=== PATIENT | male | born 1995 | race Caucasian/White ===

== ENCOUNTER 2018-01-16 10:34 | Day surgery (SDC) | END 2018-01-16 16:35 | disposition home or self-care (01) ==

== ENCOUNTER 2018-04-11 15:11 | Day surgery (SDC) | payer BC ==
[2018-04-10 17:48] VITALS: Ht 167.6 cm; Wt 73.0 kg
[2018-04-11] VITALS (17 sets, daily range): BP systolic 100–128; BP diastolic 54–74; PULSE 56–84; RESP 15–22
[~2018-04-11] VITALS: Ht 167.6 cm; Wt 73.0 kg
[2018-04-11] MEDS ORDERED: LACTATED RINGER'S 1,000 ML IV SCH (16:00)
--- NOTE | 2018-04-11 16:00 | HPN ---
Date/Time of Note Date/Time of Note DATE: 04/11/18 TIME: 16:00 Interval H&P Admission Note Pt. seen H&P reviewed: No system changes ROMINA CHU Apr 11, 2018 16:00
--- NOTE | 2018-04-11 16:02 | PREAC ---
Date/Time of Note Date/Time of Note DATE: 04/11/18 TIME: 16:00 Anesthesia Eval and Record Evaluation Time Pre-Procedure Interview DATE: 04/11/18 TIME: 16:00 Age 22 Sex male NPO: 8 hrs Preoperative diagnosis Rt middle, ring finger and small finger fracture Planned procedure Rt middle, Ring and small finger fracture ORIF Past Medical History Past Medical History: None Surgery & Anesthesia Issues No known issue Meds Anticoagulation: No Beta Renetta within 24 hr: No Reason Beta Renetta not given: Pt. not on B-Renetta No Active Prescriptions or Reported Meds Current Medications Lactated Ringer's 1,000 ml @ 0 mls/hr Q0M IV ; Start 04/11/18 at 16:00 Meds reviewed: Yes Allergies Coded Allergies: No Known Allergies (Verified Allergy, Mild, 01/16/18) Allergies Reviewed: Yes Labs/Studies Labs Reviewed: Reviewed by anesthesiologist test: N/A Pre-procedure Exam Last vitals Vital Signs Date Temp Pulse Resp B/P (MAP) Pulse Ox O2 O2 Flow FiO2 Time Delivery Rate 04/11/18 98.6 71 16 108/55 98 Room Air 15:31 (72) Airway: Adequate mouth opening, Adequate thyromental dist Mallampati: Mallampati II Teeth: Normal Lung: Normal Heart: Normal ASA Physical Status ASA physical status: 2 Emergency: None Planned Anesthetic General/MAC: LMA Planned Pain Management Single shot nerve block, Parenteral pain med, Local by surgeon Pre-operative Attestations Prior to commencing anesthesia and surgery, the patient was re-evaluated, there was verification of: *The patient's identity *The results of appropriate recent lab work and preoperative vital signs *The above evaluation not changing prior to induction *Anesthetic plan, risk benefits, alternative and complications discussed with patient/family; questions answered; patient/family understands, accepts and wishes to proceed. KALIE ONEAL MD Apr 11, 2018 16:02
[2018-04-11] MEDS ORDERED: BUPIVACAINE 0.5% (SDV) 30 ML INJ ONE (16:24)
[2018-04-11] MEDS ORDERED: MIDAZOLAM 1 MG/ML 2 ML INJ ONE (16:33)
[2018-04-11] MEDS ORDERED: LIDOCAINE 2% (SDV) 5 ML INJ ONE (17:38)
[2018-04-11] MEDS ORDERED: ROCURONIUM 50 MG INJ ONE (17:38)
[2018-04-11] MEDS ORDERED: PROPOFOL 20 ML ONE (17:38)
[2018-04-11] MEDS ORDERED: CEFAZOLIN 1 GM INJ ONE (17:38)
[2018-04-11] MEDS ORDERED: ONDANSETRON 4 MG INJ ONE (17:39)
[2018-04-11] MEDS ORDERED: ROPIVACAINE 0.5 % 30 ML VIAL ONE (17:40)
--- NOTE | 2018-04-11 17:48 | OPPN ---
Date/Time of Note Date/Time of Note DATE: 04/11/18 TIME: 17:48 Operative Report Preoperative Diagnosis right middle, ring and small finger metacarpal neck fractures Postoperative Diagnosis right middle, ring and small finger metacarpal neck fractures Operation/Procedure Performed ORIF right middle and ring finger metacarpal neck fractures CRPP small finger metacarpal neck fracture Surgeon see signature line payroll administrative assistant none Anesthesia: general Estimated blood loss: 0 - 10 ml's Transfusion Required none Specimen none Grafts/Implants none Complications none ROMINA CHU Apr 11, 2018 17:48
--- NOTE | 2018-04-11 18:13 | OPR ---
DATE OF OPERATION: 04/11/2018 SURGEON: Balta Jackson MD ANESTHESIA: General plus peripheral nerve block. PREOPERATIVE DIAGNOSES: 1. Right middle finger metacarpal neck fracture, displaced. 2. Right ring finger metacarpal neck fracture, extraarticular, displaced. 3. Right small finger metacarpal neck fracture, extraarticular, displaced. POSTOPERATIVE DIAGNOSES: 1. Right middle finger metacarpal neck fracture, displaced. 2. Right ring finger metacarpal neck fracture, extraarticular, displaced. 3. Right small finger metacarpal neck fracture, extraarticular, displaced. PROCEDURES: 1. Open reduction and internal fixation, right middle finger metacarpal neck fracture, extraarticular, displaced. 2. Open reduction and internal fixation, right ring finger metacarpal neck fracture, extraarticular, displaced. 3. Closed reduction and percutaneous pinning, right small finger metacarpal neck fracture. OPERATIVE FINDINGS: 1. Displaced right middle and ring finger metacarpal neck fractures with healing and inability to close in reduced manner. 2. Right small finger metacarpal neck fracture with the ability to reduce in a closed manner. INDICATION FOR PROCEDURE: A 22-year-old male with injury to the right hand. He was seen in clinic and diagnosed with a displaced middle, ring and small finger metacarpal neck fractures. The fractures were transverse, extraarticular and displaced. The small finger was minimally displaced; however given the displacement of the middle and ring finger, I felt it best to fix all 3 fractures. The patient elected to proceed with surgical intervention, understanding risks and benefits. DESCRIPTION OF PROCEDURE: The patient was seen preoperative area and all further questions were answered. Again, he gave informed consent understanding risks and benefits. He was taken to operative suite and placed in supine position. He was placed under general anesthesia and tourniquet was placed in the right upper extremity. Right upper extremity was prepped with ChloraPrep stick and draped in usual sterile fashion. Ancef 2 grams IV were given and x- ray imaging was brought in and found to be able to reduce the small finger into a more anatomic position without opening the fracture site. Decision was made to proceed with closed reduction, percutaneous pinning. The small finger metacarpal fracture was reduced and A 0.035 K-wire was driven retrograde across the small finger metacarpal neck from the metacarpal head into the metacarpal base. X-ray imaging showed appropriate hardware placement and bony alignment. The pin was cut short and attention was then turned to the middle finger. A longitudinal incision over the middle finger metacarpal neck was utilized with sharp dissection carried down through skin and subcutaneous tissue. The extensor tendon was protected and periosteal incision was made at the metacarpal neck. The fracture site already had callus formation and I used a 15-blade knife as well as a [place] elevator to free up the fracture site. The fracture was reduced into a more anatomic position and 0.035 K-wire was driven retrograde from the metacarpal head into the metacarpal base stabilizing the fracture. An additional 0.045 K-wire was driven retrograde from the metacarpal head into the metacarpal base. X-ray imaging showed appropriate hardware placement and bony alignment. Both pins were cut short and attention was then turned to the ring finger. A longitudinal incision over the ring finger was utilized with sharp dissection carried down through skin and subcutaneous tissue. The extensor tendon to the ring finger was protected and a periosteal incision was made and the fracture site was identified. There was callus formation which was cleared using a 15-blade knife as well as a [place] elevator. The fracture was reduced into a more anatomic position and a 0.035 K-wire was driven retrograde from the metacarpal head into the metacarpal base. A 0.045 K-wire was also driven from the metacarpal head into the metacarpal base. All fractures were quite stable and x-ray imaging showed appropriate hardware placement and bony alignment. The ring finger K-wires were cut short. Wounds were copiously irrigated and skin was closed with 5-0 nylon. Xeroform was placed in the wound followed by sterile gauze, Webril and a short arm metacarpal cuff splint. Tourniquet was deflated after a total of 33 minutes. The patient was awakened from anesthesia. He was taken to postoperative suite in stable condition, tolerated the procedure well without complication. SPECIMENS: None. ESTIMATED BLOOD LOSS: 5 mL. COUNTS: Sponge, instrument, needle counts correct. TOURNIQUET TIME: 33 minutes. CONDITION ON DISCHARGE: Stable. The patient was given a nonrefillable 5-day prescription for pain medication for surgery today. Dictated By: BALTA RHODES/SUNNI Conf#: [id number] DID#: [id number] MTDD
--- NOTE | 2018-04-11 18:17 | PAC ---
Date/Time of Note Date/Time of Note DATE: 04/11/18 TIME: 18:16 Post-Anesthesia Notes Post-Anesthesia Note Last documented vital signs Vital Signs Date Temp Pulse Resp B/P (MAP) Pulse Ox O2 O2 Flow FiO2 Time Delivery Rate 04/11/18 98.6 71 16 108/55 98 Room Air 15:31 (72) Activity: WNL Respiratory function: WNL Cardiovascular function: WNL Mental status: Baseline Pain reasonably controlled: Yes Hydration appropriate: Yes Nausea/Vomiting absent: Yes Comments P:121/65, pulse:78, spo2:100%, T:98,9 KALIE ONEAL MD Apr 11, 2018 18:17
[2018-04-11] MEDS ORDERED: DIPHENHYDRAMINE 50 MG INJ IV PRN (18:30)
[2018-04-11] MEDS ORDERED: METOCLOPRAMIDE 10 MG INJ IV PRN (18:30)
[2018-04-11] MEDS ORDERED: ONDANSETRON 4 MG INJ IV PRN (18:30)
[2018-04-11] MEDS ORDERED: FENTAnyl 50 MCG/ML VIAL IV PRN (18:30)
[2018-04-11] MEDS ORDERED: MEPERIDINE 25 MG INJ IV PRN (18:30)
[2018-04-11] MEDS ORDERED: HYDROmorphONE 1 MG/5 ML IV SYRINGE IV PRN ×2 (18:30)
[2018-04-11] MEDS ORDERED: OXYCODONE/ACETAMINOPHEN (5/325) TAB PO PRN (18:30)
== END 2018-04-11 19:30 | disposition home or self-care (01) ==
LOC: SDS 15:11
PROVIDERS: ATTEND Orthopaedic Surgery Hand Surgery
DX: S62.332A Displaced fracture of neck of third metacarpal bone, right hand, initial encounter for closed fracture (principal); S62.334A Displaced fracture of neck of fourth metacarpal bone, right hand, initial encounter for closed fracture; S62.336A Displaced fracture of neck of fifth metacarpal bone, right hand, initial encounter for closed fracture; X58.XXXA Exposure to other specified factors, initial encounter; Y93.89 Activity, other specified; Y92.89 Other specified places as the place of occurrence of the external cause; Y99.8 Other external cause status
CPT/HCPCS: 26608; 26615; 73130; C1713; J0690; J1200; J2175; J2250; J2405; J2795; J3010; Z7512; Z7610

== ENCOUNTER 2018-06-13 14:28 | Day surgery (SDC) | payer BC ==
[2018-06-13] VITALS (14 sets, daily range): BP systolic 98–118; BP diastolic 47–77; PULSE 56–77; RESP 16–23; Ht 165.1 cm; Wt 76.3 kg
[~2018-06-13] VITALS: Ht 165.1 cm; Wt 76.3 kg
--- NOTE | 2018-06-13 15:14 | HPN ---
Date/Time of Note Date/Time of Note DATE: 06/13/18 TIME: 15:14 Interval H&P Admission Note Pt. seen H&P reviewed: No system changes ROMINA CHU Jun 13, 2018 15:14
[2018-06-13] MEDS ORDERED: MIDAZOLAM 1 MG/ML 2 ML INJ ONE (15:43)
[2018-06-13] MEDS ORDERED: FENTAnyl 50 MCG/ML VIAL ONE (15:43)
[2018-06-13] MEDS ORDERED: PROPOFOL 20 ML ONE (15:43)
[2018-06-13] MEDS ORDERED: CEFAZOLIN 1 GM INJ ONE (15:46)
--- NOTE | 2018-06-13 15:54 | HPN ---
Date/Time of Note Date/Time of Note DATE: 06/13/18 TIME: 15:54 Interval H&P Admission Note Pt. seen H&P reviewed: No system changes ROMINA CHU Jun 13, 2018 15:54
[2018-06-13] MEDS ORDERED: LACTATED RINGER'S 1,000 ML IV* SCH (16:00)
[2018-06-13] MEDS ORDERED: CEFAZOLIN 2 GM/50 ML (PMX) 50 ML IVPB SCH (16:00)
--- NOTE | 2018-06-13 16:00 | PREAC ---
Date/Time of Note Date/Time of Note DATE: 06/13/18 TIME: 15:58 Anesthesia Eval and Record Evaluation Time Pre-Procedure Interview DATE: 06/13/18 TIME: 15:58 Age 23 Sex male NPO: 8 hrs Preoperative diagnosis s/p Right Hand Hardware Planned procedure Removal of Right Had Hardware Past Medical History Past Medical History: Includes Pulm: Smoking Hx Surgery & Anesthesia Issues No known issue Meds Anticoagulation: No Beta Renetta within 24 hr: No Reason Beta Renetta not given: Pt. not on B-Renetta No Active Prescriptions or Reported Meds Current Medications Lactated Ringer's 1,000 ml @ 0 mls/hr Q0M IV* ; Start 06/13/18 at 16:00; Stop 06/13/18 at 23:00 Cefazolin Sodium/ Dextrose 50 ml @ 100 mls/hr PRE-OP IVPB ; Start 06/13/18 at 16:00 Meds reviewed: Yes Allergies Coded Allergies: No Known Allergies (Verified Allergy, Mild, 01/16/18) Allergies Reviewed: Yes Labs/Studies Labs Reviewed: Reviewed by anesthesiologist Result Diagram: 06/13/18 1455 06/13/18 1455 Laboratory Tests 06/13/18 14:55 test: N/A Studies: ECG (NSR), CXR (n/a) Pre-procedure Exam Last vitals Vital Signs Date Temp Pulse Resp B/P (MAP) Pulse Ox O2 O2 Flow FiO2 Time Delivery Rate 06/13/18 98.6 73 16 98/57 (71) 99 Room Air 15:07 Airway: Adequate mouth opening, Adequate thyromental dist Mallampati: Mallampati II Teeth: Normal Lung: Normal Heart: Normal ASA Physical Status ASA physical status: 2 Emergency: None Planned Anesthetic General/MAC: LMA Planned Pain Management Parenteral pain med Pre-operative Attestations Prior to commencing anesthesia and surgery, the patient was re-evaluated, there was verification of: *The patient's identity *The results of appropriate recent lab work and preoperative vital signs *The above evaluation not changing prior to induction *Anesthetic plan, risk benefits, alternative and complications discussed with patient/family; questions answered; patient/family understands, accepts and wishes to proceed. CISCO RIVERA MD Jun 13, 2018 16:00
[2018-06-13] MEDS ORDERED: PHENYLephrine (100 MCG/ML) 10ML SYG ONE (16:15)
[2018-06-13] MEDS ORDERED: LIDOCAINE 1% (MPF) 30 ML INJ ONE (16:16)
[2018-06-13] MEDS ORDERED: BUPIVACAINE 0.5% (SDV) 30 ML INJ ONE (16:16)
[2018-06-13] MEDS ORDERED: DIPHENHYDRAMINE 50 MG INJ IV PRN (16:30)
[2018-06-13] MEDS ORDERED: METOCLOPRAMIDE 10 MG INJ IV PRN (16:30)
[2018-06-13] MEDS ORDERED: ONDANSETRON 4 MG INJ IV PRN (16:30)
[2018-06-13] MEDS ORDERED: ALBUMIN HUMAN 5% 250 ML IV PRN (16:30)
[2018-06-13] MEDS ORDERED: HYDROmorphONE 1 MG/5 ML IV SYRINGE IV PRN ×3 (16:30)
[2018-06-13] MEDS ORDERED: OXYCODONE/ACETAMINOPHEN (5/325) TAB PO PRN ×2 (16:30)
[2018-06-13] MEDS ORDERED: MEPERIDINE 25 MG INJ IV PRN (16:30)
[2018-06-13] MEDS ORDERED: EPHEDrine SULFATE 50 MG/5 ML SYG IV PRN (16:30)
[2018-06-13] MEDS ORDERED: FENTAnyl 50 MCG/ML VIAL IV PRN ×3 (16:30)
[2018-06-13] MEDS ORDERED: ONDANSETRON 4 MG INJ ONE (16:31)
[2018-06-13] MEDS ORDERED: DEXAMETHASONE 4 MG/ML 5 ML INJ ONE (16:32)
[2018-06-13] MEDS ORDERED: METOCLOPRAMIDE 10 MG INJ ONE (16:32)
[2018-06-13] MEDS ORDERED: KETOROLAC 30 MG INJ ONE (16:32)
--- NOTE | 2018-06-13 16:50 | PAC ---
Date/Time of Note Date/Time of Note DATE: 06/13/18 TIME: 16:50 Post-Anesthesia Notes Post-Anesthesia Note Last documented vital signs Vital Signs Date Temp Pulse Resp B/P (MAP) Pulse Ox O2 O2 Flow FiO2 Time Delivery Rate 06/13/18 98.6 73 16 98/57 (71) 99 Room Air 16:47 Activity: WNL Respiratory function: WNL Cardiovascular function: WNL Mental status: Baseline Pain reasonably controlled: Yes Hydration appropriate: Yes Nausea/Vomiting absent: Yes CISCO RIVERA MD Jun 13, 2018 16:50
--- NOTE | 2018-06-13 18:21 | OPPN ---
Date/Time of Note Date/Time of Note DATE: 06/13/18 TIME: 18:20 Operative Report Preoperative Diagnosis right middle ring and small finger deep retained hardware at 5 sites Postoperative Diagnosis right middle ring and small finger deep retained hardware at 5 sites Operation/Procedure Performed removal of deep hardware right middle ring and small finger at 5 sites- Surgeon see signature line laundry assistant none Anesthesia: general Estimated blood loss: 0 - 10 ml's Transfusion Required none Specimen k wires x 5 Grafts/Implants none Complications none ROMINA CHU Jun 13, 2018 18:21
--- NOTE | 2018-06-13 18:55 | OPR ---
DATE OF OPERATION: 06/13/2018 SURGEON: Balta Jackson MD ANESTHESIA: General. PREOPERATIVE DIAGNOSES: 1. Deep retained hardware, right middle finger radial metacarpal neck. 2. Deep retained hardware, right middle finger ulnar metacarpal neck. 3. Deep retained hardware, right ring finger radial metacarpal neck. 4. Deep retained hardware, right ring finger ulnar metacarpal neck. 5. Deep retained hardware, right small finger ulnar metacarpal neck. POSTOPERATIVE DIAGNOSES: 1. Deep retained hardware, right middle finger radial metacarpal neck. 2. Deep retained hardware, right middle finger ulnar metacarpal neck. 3. Deep retained hardware, right ring finger radial metacarpal neck. 4. Deep retained hardware, right ring finger ulnar metacarpal neck. 5. Deep retained hardware, right small finger ulnar metacarpal neck. PROCEDURES: Removal of deep hardware for all the followin. Right middle finger radial metacarpal neck. 2. Right middle finger ulnar metacarpal neck. 3. Right ring finger radial metacarpal neck. 4. Right ring finger ulnar metacarpal neck. 5. Right small finger ulnar metacarpal neck. OPERATIVE FINDINGS: K-wires x5 deep at the middle, ring and small fingers. INDICATION FOR PROCEDURE: A 23-year-old male with previous injury to the right hand, who underwent f ixation. He had buried K-wires which required removal. They were deep at the middle, ring and small finger metacarpal neck. We discussed the options and the patient elected to proceed with removal of deep hardware, understanding risks and benefits. DESCRIPTION OF PROCEDURE: The patient was seen in the preoperative area. All further questions were answered. Again, he gave informed consent, understanding risks and benefits. He was taken to the o perative suite and placed in supine position. He was placed under general anesthesia and Ancef 2 gra ms IV were given. Tourniquet was placed in the right upper extremity and right upper extremity was p repped with ChloraPrep stick and draped in usual sterile fashion. Esmarch bandage was used to exsang uinate the extremity and tourniquet was inflated to 250 mmHg. Attention was first turned to the midd le finger radial aspect of the metacarpal neck and x-ray imaging confirmed the position of the K-wire . A 15-blade knife was used to dissect through skin and subcutaneous tissue and tenotomy scissor was used to dissect down to the K-wire at the metacarpal neck. A needle tow driver was used to remove the K -wire. Attention was then turned to the ulnar aspect of the right middle finger metacarpal neck and a similar procedure was performed using knife through skin and subcutaneous tissue, a needle tow driver t o remove the K-wire. Attention was turned to the ring finger radial aspect of the metacarpal neck an d a similar procedure was performed with knife through skin and subcutaneous tissue, tenotomy scissor and needle tow driver to remove the K-wire. Attention turned to the ulnar aspect of the ring finger met acarpal neck and a similar procedure was performed with removal of the K-wire after making incision a nd dissection with tenotomy scissor with needle tow driver. Attention turned to the small finger and a s imilar procedure was performed with a knife through skin and subcutaneous tissue and tenotomy scissor down to the K-wire with K wire removed using a needle tow driver. The wounds were copiously irrigated a nd all 5 incisions were closed with 5-0 nylon. Xeroform was placed over the wounds followed by steri le gauze, Webril and bias dressing. Tourniquet was deflated after 15 minutes. The patient was awake maggie from anesthesia. He was taken the postoperative suite in stable condition, tolerated procedure w ell without complication. SPECIMENS: K-wires x5. ESTIMATED BLOOD LOSS: 5 mL. COUNTS: Sponge, instrument, needle counts were correct. TOURNIQUET TIME: 15 minutes. CONDITION ON DISCHARGE: Stable. The patient was given a non-refillable 5-day prescription for pain medication for surgery today. Dictated By: BALTA RHODES/SUNNI Conf#: [id number] DID#: [id number]
--- NOTE | 2018-06-15 18:07 | RADRPT ---
Vent Rate: 73 bpm RR Interval: 0 msec MA Interval: 148 msec QRS Duration: 82 msec QT Interval: 374 msec QTC Interval: 412 msec P-R-T Powersite: 10 - -28 - 32 degrees Normal sinus rhythm Normal ECG Electronically Signed By: Yousif Machuca
== END 2018-06-13 18:08 | disposition home or self-care (01) ==
LOC: SDS 14:28
PROVIDERS: ATTEND Orthopaedic Surgery Hand Surgery
DX: Z47.2 Encounter for removal of internal fixation device (principal); Z72.0 Tobacco use; R94.31 Abnormal electrocardiogram [ECG] [EKG]
CPT/HCPCS: 20680; 71045; 73130; 80053; 85025; 85610; 85730; 93005; J0690; J1100; J1170; J1885; J2250; J2370; J2405; J2765; J3010; Z7512; Z7610